=== PATIENT | male | born 1945 | race Caucasian/White ===

== ENCOUNTER 2018-09-16 07:16 | Emergency (ER) | payer MEDICARE ==
[2018-09-16] MEDS ORDERED: MULTIVITAMINS(*) 10 ML VIAL 10 ML, THIAMINE HCL(*) 200 MG/2 ML IN 100 MG, FOLIC ACID(*)... IV ONE (07:30)
--- NOTE | 2018-09-16 07:31 | ER Report ---
History and Physical Time Seen By MD: 07:20 Hx. of Stated Complaint: WEAKNESS DIZZY "NOT RIGHT IN THE HEAD" HX OF SLURRED SPEECH (LAURORA,WESLEY V DO) HPI/ROS CHIEF COMPLAINT: slurred speach, dizzy, not right HISTORY OF PRESENT ILLNESS: Pt brought in by astranged carlos son. Pt and son are from [place] and are on a camping trip to [place]. PT is an alcoholic per son and has been homeless. Step son has taken him off the streets and has been trying to help him. States that pt started 5 days ago acting strangely. PT having intermittent episodes of slurred speech, dizziness and speaking gibberish.Pt was fine two days ago and then restarted with symptoms last night. Woke up with slurred speech and dizziness.Speech improved but still feels off balance and spinning. Dizziness is not positional. Pt states he also feels sob since he arrived in [place]. Son states pt did not want to go to ed until this am. Pt states that he has hx of htn and prior tia. Pt is not on any medications due to "i cant afford any medications". Pt admits to being an alcoholic and has been cutting down to just a few shots a day. Pt is also a smoker. Pt denies ever having extremity weakness with these episodes "we hiked just yesterday". REVIEW OF SYSTEMS: Constitutional: No fever, no chills. Eyes: No discharge. ENT: No sore throat. Cardiovascular: No chest pain, no palpitations. Respiratory: No cough, + shortness of breath. Gastrointestinal: No abdominal pain, no vomiting. Genitourinary: No hematuria. Musculoskeletal: No back pain. Skin: No rashes. Neurological: No headache, + slurred speach, dizziness (LAURORA,WESLEY V DO) Allergies: Coded Allergies: No Known Allergies (Verified Allergy, Unknown, 09/16/18) Past Medical/Surgical History Pmhx: alcoholic, htn, depression, cad, tia (LAURORA,WESLEY V DO) Reviewed Nurses Notes: Yes (LAURORA,WESLEY V DO) Hx Smoking: Yes Smoking Status: Current: Every Day Smoker Hx Alcohol Use: Yes (Daily) (LAURORA,WESLEY V DO) Constitutional Vital Sign - Last 24 Hours 09/16/18 09/16/18 09/16/1819 07:16 07:25 07:30 07:46 Temp 97.7 Pulse 76 55 Resp 15 17 B/P (MAP) 207/98 (134) 207/95 151/60 (90) Pulse Ox 88 91 O2 Delivery Room Air 09/16/18 09/16/18 09/16/18 09/16/18 08:00 08:05 08:30 08:35 Pulse 53 57 Resp 17 23 B/P (MAP) 143/61 (88) 186/61 (102) Pulse Ox 90 94 09/16/18 09/16/18 09/16/18 09/16/18 10:25 10:30 11:00 11:30 Pulse 52 51 50 Resp 20 B/P (MAP) 153/65 (94) 150/68 (95) 152/66 (94) 167/67 (100) Pulse Ox 97 (MEAGHAN MASSEY MD) Physical Exam General Appearance: The patient is alert, has no immediate need for airway protection and no signs of toxicity. Eyes: Pupils equal and round no pallor or injection, EOMI ENT: no pharyngeal erythema or exudates, Mucous membranes are moist, TM are nl b/l Respiratory: There are no retractions, lungs are clear to auscultation. Cardiovascular: Regular rate and rhythm. pulses are equal and symmetrical Gastrointestinal: Abdomen is soft and non tender, no masses, bowel sounds normal, no guarding, no rigidity or rebound Neurological: Cranial nerves II-XII grossly intact, no sensory or motor loss, upper and lower strength 5/5, no dysymetria or pronator drift Skin: Warm and dry, no rashes. Musculoskeletal: Neck is supple non tender, no vertebral tenderness Extremities are nontender, nonswollen and have full range of motion. DIFFERENTIAL DIAGNOSIS: After history and physical exam differential diagnosis was considered for tia, cva, intracranial bleed, Wernicke's encephalopathy, electrolyte abnl, altitude sickness (LAURORA,WESLEY V DO) Medical Decision Making Data Points Result Diagram: 09/16/18 0723 09/16/18 0723 Laboratory Hematology Test 09/16/18 07:23 White Blood Count 5.8 k/uL (4.5-11.0) Red Blood Count 4.82 M/uL (4.00-5.60) Hemoglobin 16.1 g/dL (14.0-18.0) Hematocrit 47.5 % (42.0-52.0) Mean Corpuscular Volume 98.5 fL (80.0-96.0) H Mean Corpuscular Hemoglobin 33.4 pg (26.0-33.0) H Mean Corpuscular Hemoglobin Concent 33.9 g/dL (32.0-36.0) Red Cell Distribution Width 13.9 % (11.5-14.5) Platelet Count 273 K/uL (150-450) Mean Platelet Volume 7.7 fL (7.2-11.1) Neutrophils (%) (Auto) 69.5 % (39.4-72.5) Lymphocytes (%) (Auto) 19.0 % (17.6-49.6) Monocytes (%) (Auto) 9.7 % (4.1-12.4) Eosinophils (%) (Auto) 0.9 % (0.4-6.7) Basophils (%) (Auto) 0.9 % (0.3-1.4) Nucleated RBC Relative Count (auto) 0.1 /100WBC Neutrophils # (Auto) 4.0 K/uL (2.0-7.4) Lymphocytes # (Auto) 1.1 K/uL (1.3-3.6) L Monocytes # (Auto) 0.6 K/uL (0.3-1.0) Eosinophils # (Auto) 0.1 K/uL (0.0-0.5) Basophils # (Auto) 0.1 K/uL (0.0-0.1) Nucleated RBC Absolute Count (auto) 0.00 K/uL Chemistry Test 09/16/18 07:23 Sodium Level 139 mmol/L (137-145) Potassium Level 4.1 mmol/L (3.5-5.0) Chloride Level 104 mmol/L (98-107) Carbon Dioxide Level 23 mmol/L (22-30) Blood Urea Nitrogen 15 mg/dl (9-21) Creatinine 0.80 mg/dl (0.66-1.25) Glomerular Filtration Rate Calc > 60.0 Random Glucose 102 mg/dl (75-110) Calcium Level 9.5 mg/dl (8.4-10.2) Magnesium Level 2.2 mg/dl (1.7-2.2) Total Bilirubin 1.1 mg/dl (0.2-1.3) Aspartate Amino Transf (AST/SGOT) 43 U/L (0-35) Alanine Aminotransferase (ALT/SGPT) 31 U/L (0-56) Alkaline Phosphatase 101 U/L (0-126) Troponin I < 0.012 ng/ml Total Protein 8.7 g/dl (6.3-8.2) Albumin 4.8 g/dl (3.5-5.0) Coagulation Test 09/16/18 08:15 Prothrombin Time 13.3 seconds (12.0-14.4) Prothromb Time International Ratio 1.01 Activated Partial Thromboplast Time 27 seconds (23-35) Toxicology Test 09/16/18 07:23 Serum Alcohol < 10 mg/dl (MEAGHAN MASSEY MD) EKG/Imaging EKG Interpretation nsr @ 60 with no acute changes (WESLEY BLANCHARD DO) Imaging FACILITY: [facility] PATIENT NAME: Homer Garcia : 1945 MR: [id number] V: [id number] EXAM DATE: ORDERING PHYSICIAN: WESLEY BLANCHARD TECHNOLOGIST: Location: [facility] Patient: Homer Garcia : 1945 Visit/Account:[id number] Date of Sevice: 09/16/2018 Study: CT scan of the brain without intravenous contrast. Indication: Leg weakness and dizziness Comparison study:None Technique: Multiple axial images were obtained through the brain without the use of intravenous contrast. One of the following dose optimization techniques was utilized in the performance of this exam: Automated exposure control; adjustment of the mA and/or kV according to the patient's size; or use of an iterative reconstruction technique. Specific details can be referenced in the facility's radiology CT exam operational policy. The examination demonstrates no evidence of acute intracranial hemorrhage. There is no evidence of extra-axial collection or hydrocephalus. There is no abnormal density identified within the brain parenchyma. There is no evidence of disruption of the peripheral medrano-white junction. The bony structures are unremarkable. IMPRESSION:Unremarkable CT scan of the brain without contrast. Report Dictated By: Mitchell Dan at 09/16/2018 7:53 AM Report E-Signed By: Mitchell Dan at 09/16/2018 7:54 AM WSN:[id number] FACILITY: [facility] PATIENT NAME: Homer Garcia : 1945 MR: [id number] V: [id number] EXAM DATE: ORDERING PHYSICIAN: WESLEY BLANCHARD TECHNOLOGIST: Location: [facility] Patient: Homer Garcia : 1945 Visit/Account:[id number] Date of Sevice: 09/16/2018 MR BRAIN/BRAIN STEM W/O CON Comparisons: Head CT scan dated earlier same day Additional pertinent history: Slurred speech with dizziness TECHNIQUE: Multiplanar, multisequence brain MRI was performed without gadolinium contrast. FINDINGS: Sagittal midline structures and craniocervical junction: Negative. Midline shift: None. Ventricles: Mild enlargement of the lateral and third ventricles. Brain parenchyma: Diffusion weighted imaging: Negative. Gradient sequence: Negative. T2 weighted FLAIR images: Scattered foci of abnormal increased T2 signal w ithin the periventricular and subcortical white matter as well as within the brainstem. This is most likely related to small vessel ischemic change on a chronic basis. Extra-axial spaces: Mild cerebral atrophy. Dural venous sinuses and major arterial flow voids: Negative. Mastoid air cells and paranasal sinuses: Negative. Surrounding soft tissues and orbits: Negative. Impression: 1. Age related changes as described above. 2. No evidence of acute intracranial pathology. Report Dictated By: Pravin Dumont MD at 09/16/2018 10:45 AM Report E-Signed By: Pravin Dumont MD at 09/16/2018 10:49 AM WSN:[id number] FACILITY: [facility] PATIENT NAME: Homer Garcia : 1945 MR: [id number] V: [id number] EXAM DATE: ORDERING PHYSICIAN: WESLEY BLANCHARD TECHNOLOGIST: Location: [facility] Patient: Homer Garcia : 1945 Visit/Account:[id number] Date of Sevice: 09/16/2018 MRA HEAD W/O CONTRAST COMPARISON: None Additional pertinent history: Slurred speech with dizziness Technique: 3-D [id number] imaging was performed of the [place] of [place] with multiple reformatted images obtained off the axial source data. FINDINGS: Vascular variants: None Visualized vertebrobasilar system: Patient is right vertebral dominant. The vertebral arteries have a normal appearance. 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 A1 and M1 segments: Negative A2 and M2 segments: Negative Anterior communicating artery: Negative P1 segments/superior cerebellar arteries: Negative IMPRESSION: 1. 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 2. Remaining portions of the exam are unremarkable. Report Dictated By: Pravin Dumont MD at 09/16/2018 10:49 AM Report E-Signed By: Pravin Dumont MD at 09/16/2018 10:52 AM WSN:[id number] (MEAGHAN MASSEY MD) ED Course/Re-evaluation ED Course Check labs, ct and possibly MRI. Will start banana bag with MVI, mag and thiamine 09/16/2018 8:19:42 am Signed out to Dr. Massey (WESLEY BLANCHARD DO) ED Course 09/16/2018 11:56:56 am imaging showed no evidence of acute infarction or stroke including both the noncontrast CT of the head and CT brain MRI. There was an incidental finding of a 2 mm aneurysm at the [place] point of the left internal carotid artery without evidence of bleeding. I did speak with Antelmo Narayan history and physical exam pertinent lab data and imaging studies were reviewed. did not feel that the patient's symptoms related to this aneurysm, he also feels that this is something that can be followed up when he returns to [place] at [facility]. Thought process at this time his symptoms could be alcohol related in the sense of wernike's encephalopathy or Kortakoff syndrome. We will place the patient on thiamine. We will discharge the patient with instructions to follow-up upon return to [place] with neurosurgery at [facility]. Patient had no questions or concerns at time of disposition. Patient sent with Rx for thiamine oral 100mg daily for 30 days Decision to Disposition Date: Sep 16, 2018 Decision to Disposition Time: 11:59 Turned Over accepted care at 0836 (MEAGHAN MASSEY MD) Depart Departure Latest Vital Signs Vital Signs Date Time Temp Pulse Resp B/P (MAP) Pulse Ox O2 Delivery O2 Flow Rate FiO2 09/16/18 11:30 50 20 167/67 (100) 97 09/16/18 07:25 97.7 Room Air (MEAGHAN MASSEY MD) Impression: Primary Impression: Dizziness Condition: Improved Disposition: HOME OR SELF-CARE Patient Instructions: Dizziness (ED) Additional Instructions: Your imaging studies today did not show any evidence that you've had a stroke. You do have a 2 mm aneurysm which is a dilation of the blood vessel to the left internal carotid artery at the branch point. This was felt to be an incidental finding and not the cause of your symptoms today. It is recommended however that you follow up with neurosurgery when he returned home to [place], [place]. He is also recommended that you decrease her alcohol consumption and if possible remain abstinent from alcohol use. You should also follow up with her primary care provider upon returning to [place] WESLEY BLANCHARD DO Sep 16, 2018 07:31 MEAGHAN MASSEY MD Sep 16, 2018 08:52
--- NOTE | 2018-09-16 07:41 | EKG ---
FACILITY: [facility] PATIENT NAME: MARTA COON : [id number] MR: [id number] V: [id number] EXAM DATE: ORDERING PHYSICIAN: WESLEY BLANCHARD TECHNOLOGIST: MARTINA Test Reason : DIZZY, CHEST PRESS. Blood Pressure : / mmHG Vent. Rate : 061 BPM Atrial Rate : 061 BPM P-R Int : 134 ms QRS Dur : 084 ms QT Int : 418 ms P-R-T Axes : 040 058 066 degrees QTc Int : 420 ms Normal sinus rhythm Normal ECG No previous ECGs available Confirmed by SAMY RING ([id number]) on 09/16/2018 9:59:53 AM Referred By: SANTO Confirmed By:SAMY RING
[2018-09-16 07:47] LABS: PLATELET COUNT, AUTOMATED 273 K/uL (150-450)
--- NOTE | 2018-09-16 07:54 | RADIOLOGY IMAGING REPORT ---
FACILITY: [facility] PATIENT NAME: Homer Garcia : 1945 MR: [id number] V: [id number] EXAM DATE: ORDERING PHYSICIAN: WESLEY BLANCHARD TECHNOLOGIST: Location: [facility] Patient: Homer Garcia : 1945 Visit/Account:[id number] Date of Sevice: 09/16/2018 Study: Frontal and lateral views of the chest Indication: Weakness in legs, dizziness Comparison study: None Findings: PA and lateral views of the chest demonstrate no evidence of acute infiltrate. There is no evidence of pleural effusion. There is no evidence of pneumothorax. The mediastinal, cardiac, and diaphragmatic contours are unremarkable. The visualized bony structures are unremarkable. IMPRESSION: Unremarkable chest. Report Dictated By: Mitchell Dan at 09/16/2018 7:45 AM Report E-Signed By: Mitchell Dan at 09/16/2018 7:46 AM WSN:[id number]
--- NOTE | 2018-09-16 08:02 | RADIOLOGY IMAGING REPORT ---
FACILITY: [facility] PATIENT NAME: Homer Garcia : 1945 MR: [id number] V: [id number] EXAM DATE: ORDERING PHYSICIAN: WESLEY BLANCHARD TECHNOLOGIST: Location: [facility] Patient: Homer Garcia : 1945 Visit/Account:[id number] Date of Sevice: 09/16/2018 Study: CT scan of the brain without intravenous contrast. Indication: Leg weakness and dizziness Comparison study:None Technique: Multiple axial images were obtained through the brain without the use of intravenous contr ast. One of the following dose optimization techniques was utilized in the performance of this exam: Autom ated exposure control; adjustment of the mA and/or kV according to the patient's size; or use of an i terative reconstruction technique. Specific details can be referenced in the facility's radiology C T exam operational policy. The examination demonstrates no evidence of acute intracranial hemorrhage. There is no evidence of ex tra-axial collection or hydrocephalus. There is no abnormal density identified within the brain parenchyma. There is no evidence of disruption of the peripheral medrano-white junction. The bony structures are unremarkable. IMPRESSION:Unremarkable CT scan of the brain without contrast. Report Dictated By: Mitchell Dan at 09/16/2018 7:53 AM Report E-Signed By: Mitchell Dan at 09/16/2018 7:54 AM WSN:[id number]
[2018-09-16 08:45] LABS: INR 1.01
[2018-09-16] MEDS ORDERED: NS(*) 0.9% 50 ML BAG 50 ML ONE (08:56)
[2018-09-16] MEDS ORDERED: GADOBENATE 529MG/1ML 15ML VIAL IVP ONE (08:56)
--- NOTE | 2018-09-16 10:58 | RADIOLOGY IMAGING REPORT ---
FACILITY: [facility] PATIENT NAME: Homer Garcia : 1945 MR: [id number] V: [id number] EXAM DATE: ORDERING PHYSICIAN: WESLEY BLANCHARD TECHNOLOGIST: Location: [facility] Patient: Homer Garcia : 1945 Visit/Account:[id number] Date of Sevice: 09/16/2018 MR BRAIN/BRAIN STEM W/O CON Comparisons: Head CT scan dated earlier same day Additional pertinent history: Slurred speech with dizziness TECHNIQUE: Multiplanar, multisequence brain MRI was performed without gadolinium contrast. FINDINGS: Sagittal midline structures and craniocervical junction: Negative. Midline shift: None. Ventricles: Mild enlargement of the lateral and third ventricles. Brain parenchyma: Diffusion weighted imaging: Negative. Gradient sequence: Negative. T2 weighted FLAIR images: Scattered foci of abnormal increased T2 signal within the periventricular and subcortical white matter as well as within the brainstem. This is most likely related to small vessel ischemic change on a chronic basis. Extra-axial spaces: Mild cerebral atrophy. Dural venous sinuses and major arterial flow voids: Negative. Mastoid air cells and paranasal sinuses: Negative. Surrounding soft tissues and orbits: Negative. Impression: 1. Age related changes as described above. 2. No evidence of acute intracranial pathology. Report Dictated By: Pravin Dumont MD at 09/16/2018 10:45 AM Report E-Signed By: Pravin Dumont MD at 09/16/2018 10:49 AM WSN:[id number]
--- NOTE | 2018-09-16 11:00 | RADIOLOGY IMAGING REPORT ---
FACILITY: [facility] PATIENT NAME: Homer Garcia : 1945 MR: [id number] V: [id number] EXAM DATE: ORDERING PHYSICIAN: WESLEY BLANCHARD TECHNOLOGIST: Location: [facility] Patient: Homer Garcia : 1945 Visit/Account:[id number] Date of Sevice: 09/16/2018 MRA HEAD W/O CONTRAST COMPARISON: None Additional pertinent history: Slurred speech with dizziness Technique: 3-D [id number] imaging was performed of the [place] of [place] with multiple reformatted images obtained off the axial source data. FINDINGS: Vascular variants: None Visualized vertebrobasilar system: Patient is right vertebral dominant. The vertebral arteries have a normal appearance. 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 A1 and M1 segments: Negative A2 and M2 segments: Negative Anterior communicating artery: Negative P1 segments/superior cerebellar arteries: Negative IMPRESSION: 1. 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 2. Remaining portions of the exam are unremarkable. Report Dictated By: Pravin Dumont MD at 09/16/2018 10:49 AM Report E-Signed By: Pravin Dumont MD at 09/16/2018 10:52 AM WSN:[id number]
--- NOTE | 2018-09-16 11:04 | RADIOLOGY IMAGING REPORT ---
FACILITY: [facility] PATIENT NAME: Homer Garcia : 1945 MR: [id number] V: [id number] EXAM DATE: ORDERING PHYSICIAN: WESLEY BLANCHARD TECHNOLOGIST: Location: [facility] Patient: Homer Garcia : 1945 Visit/Account:[id number] Date of Sevice: 09/16/2018 MRA NECK W W/O CONTRAST COMPARISON: None ADDITIONAL PERTINENT HISTORY: Slurred speech and dizziness Technique: 3-D [id number] imaging and contrasted enhanced MRA was performed of the neck arterial vasculature with multiple reformatted images obtained off the axial source data. Study was performed before and after the IV administration of gadolinium. Degrees of stenosis of the cervical internal carotid arteries are based on NASCET criteria. CONTRAST: 15 ml of MultiHance FINDINGS: Vascular variants: None Great vessel origins/aortic arch: Negative Vertebral arteries: Patient is right vertebral dominant. The left vertebral artery has a normal appe arance. The right vertebral artery has a normal appearance. Common carotid arteries: Negative Common carotid artery bifurcations: Negative Cervical internal carotid arteries: Mild atherosclerotic irregularity involving the proximal cervical internal carotid arteries without significant stenosis. The more distal aspects of both cervical in ternal carotid arteries are unremarkable. Visualized intracranial arterial anatomy: Negative Surrounding soft tissues: Negative IMPRESSION: 1. Mild atherosclerotic irregularity involving the proximal cervical internal carotid arteries. 2. No other acute abnormality noted. 3. No significant stenosis noted involving the arterial vasculature of the neck. Report Dictated By: Pravin Dumont MD at 09/16/2018 10:52 AM Report E-Signed By: Pravin Dumont MD at 09/16/2018 10:55 AM WSN:[id number]
[2018-09-16 11:30] VITALS: BP 167/67
== END 2018-09-16 12:21 | disposition home or self-care (01) ==
LOC: ER 07:38
DX: R42 Dizziness and giddiness (principal)
CPT/HCPCS: 70450; 70544; 70549; 70551; 71046; 83735; 84484; 85025; 85610; 85730; 93005; 96365; 96366; 99284; A9577; G0480; J3411; J3475; J7030; J7050; 80320; 82040; 82247; 82310; 82374; 82435; 82565; 82947; 84075; 84132; 84155; 84295; 84450; 84460; 84520

== ENCOUNTER 2018-09-22 20:18 | Emergency (ER) | payer MEDICARE ==
--- NOTE | 2018-09-22 20:21 | ER Report ---
History and Physical Time Seen By MD: 20:17 (JESSICA AN MD) Time Seen By MD: 07:00 (KEYSHA ARZATE DO) HPI/ROS CHIEF COMPLAINT: not feeling safe. HISTORY OF PRESENT ILLNESS: This is a 73 year old male. He is homeless. He has a history of alcoholism, but states he has not had much to drink, maybe a shot or two of beer earlier today. Denies other substance abuse. He says his memory has been getting bad. Seems to come and go, and he is worried about his safety. He feels like he may need to be admitted into a care home situation. He has normal bowels. Normal urination without dysuria. Has no chest pain or palpitations. He has no shortness of breath or cough. He has no fevers or chi lls. Denies headache, but has had some dizziness at times. He does have some suicidal thoughts and recently has had some thoughts of trying to hang himself, but no definitive plan, and these thoughts make him worried as well. No current medications at this time based on social situation. REVIEW OF SYSTEMS: As above. (JESSICA AN MD) HPI/ROS Please see Dr. An's note (KEYSHA ARZATE DO) Allergies: Coded Allergies: No Known Allergies (Verified Allergy, Unknown, 09/16/18) Reviewed Nurses Notes: Yes (JESSICA AN MD) Hx Smoking: Yes Smoking Status: Current: Every Day Smoker Hx Substance Use Disorder: No Hx Alcohol Use: Yes (Daily) (JESSICA AN MD) Constitutional Vital Sign - Last 24 Hours 09/22/18 09/22/18 09/22/18 09/22/18 20:26 20:30 20:33 20:48 Temp 98.2 Pulse 94 96 86 Resp 24 B/P (MAP) 189/81 149/90 (109) Pulse Ox 93 91 91 O2 Delivery Room Air 09/22/18 09/22/18 09/22/18 09/22/18 21:00 21:03 21:18 21:30 Pulse 78 79 B/P (MAP) 137/54 (81) 131/74 (93) Pulse Ox 89 90 09/22/18 09/22/18 09/22/18 09/22/18 21:33 21:48 22:03 22:08 Pulse 77 73 72 74 B/P (MAP) 132/66 (88) Pulse Ox 92 91 91 90 09/22/18 09/22/18 09/22/18 09/22/18 22:23 22:30 22:38 22:43 Pulse 72 68 67 B/P (MAP) 135/60 (85) Pulse Ox 91 87 87 09/22/18 09/22/18 09/22/18 09/22/18 22:58 23:00 23:13 23:28 Pulse 67 66 65 B/P (MAP) 136/57 (83) Pulse Ox 87 88 88 09/22/18 09/22/18 09/22/18 09/23/18 23:30 23:43 23:58 00:00 Pulse 65 68 B/P (MAP) 129/62 (84) 144/55 (84) Pulse Ox 88 90 09/23/18 09/23/18 09/23/18 09/23/18 00:13 00:28 00:30 00:35 Pulse 63 60 62 B/P (MAP) 123/55 (77) Pulse Ox 88 89 89 09/23/18 09/23/18 09/23/18 09/23/18 00:50 01:00 01:05 01:20 Pulse 59 61 60 B/P (MAP) 121/53 (75) Pulse Ox 88 89 89 09/23/18 09/23/18 09/23/18 09/23/18 01:30 01:35 01:50 02:00 Pulse 57 58 B/P (MAP) 118/56 (76) 113/56 (75) Pulse Ox 89 88 09/23/18 09/23/18 09/23/18 09/23/18 02:05 02:12 02:20 02:30 Pulse 63 63 B/P (MAP) 127/57 (80) Pulse Ox 87 O2 Flow Rate 2.0 09/23/18 09/23/18 09/23/18 09/23/18 02:35 02:50 03:00 03:05 Pulse 56 58 55 B/P (MAP) 110/45 (66) Pulse Ox 97 97 95 09/23/18 09/23/18 09/23/18 09/23/18 03:20 03:30 03:35 03:40 Pulse 55 60 54 B/P (MAP) 107/43 (64) Pulse Ox 95 95 95 09/23/18 09/23/18 09/23/18 09/23/18 03:55 04:00 04:10 04:25 Pulse 57 53 57 B/P (MAP) 123/59 (80) Pulse Ox 95 09/23/18 09/23/18 09/23/18 09/23/18 04:30 04:40 04:55 05:00 Pulse 58 54 B/P (MAP) 126/58 (80) 125/65 (85) Pulse Ox 98 96 09/23/18 09/23/18 09/23/18 09/23/18 05:10 05:25 05:30 05:35 Pulse 54 54 54 B/P (MAP) 139/63 (88) Pulse Ox 97 96 95 09/23/18 09/23/18 09/23/18 09/23/18 05:50 06:00 06:05 06:20 Pulse 54 53 56 B/P (MAP) 131/57 (81) Pulse Ox 95 96 96 Intake and Output 09/22/18 09/22/18 09/23/18 15:04 23:04 07:04 Intake Total 1015.2 ml Balance 1015.2 ml (ARZATE,KEYSHA S DO) Physical Exam General Appearance: The patient is alert. Disheveled appearance. No acute distress. Eyes: Pupils are equal, round. Reactive to light. No pallor, injection or icterus. Extraocular movements are intact. ENT: Mucous membranes are moist. Normal oral mucosa. Posterior oropharynx is normal. Neck: Supple and non tender. Respiratory: Lungs are clear to auscultation. Cardiovascular: Regular rate and rhythm. No murmurs, gallops or rubs. Normal capillary refill. No edema. Gastrointestinal: Abdomen is soft and non tender. Nondistended. Normal active bowel sounds. Neurological: Alert and oriented x3. Cranial nerves II through XII show no acute deficits on my exam. No focal neurologic deficits in the extremities. Skin: Warm and dry. No rashes. Musculoskeletal: Extremities are nontender. Full range of motion. No tenderness in palpation of the cervical, thoracic and lumbar spine. DIFFERENTIAL DIAGNOSIS: After history and physical exam, differential diagnosis was considered for patient with concern about memory and safety, also with some suicidal ideation, but no definitive plan. (JESSICA AN MD) Physical Exam Please see Dr. An's note (KEYSHA ARZATE DO) Medical Decision Making Data Points Result Diagram: 09/22/18214409/22/182144 Laboratory Hematology Test 09/22/18 21:45 White Blood Count 7.6 k/uL (4.5-11.0) Red Blood Count 4.38 M/uL (4.00-5.60) Hemoglobin 14.6 g/dL (14.0-18.0) Hematocrit 42.6 % (42.0-52.0) Mean Corpuscular Volume 97.3 fL (80.0-96.0) H Mean Corpuscular Hemoglobin 33.4 pg (26.0-33.0) H Mean Corpuscular Hemoglobin Concent 34.4 g/dL (32.0-36.0) Red Cell Distribution Width 13.6 % (11.5-14.5) Platelet Count 229 K/uL (150-450) Mean Platelet Volume 7.4 fL (7.2-11.1) Neutrophils (%) (Auto) 77.3 % (39.4-72.5) H Lymphocytes (%) (Auto) 13.4 % (17.6-49.6) L Monocytes (%) (Auto) 8.5 % (4.1-12.4) Eosinophils (%) (Auto) 0.3 % (0.4-6.7) L Basophils (%) (Auto) 0.5 % (0.3-1.4) Nucleated RBC Relative Count (auto) 0.0 /100WBC Neutrophils # (Auto) 5.9 K/uL (2.0-7.4) Lymphocytes # (Auto) 1.0 K/uL (1.3-3.6) L Monocytes # (Auto) 0.6 K/uL (0.3-1.0) Eosinophils # (Auto) 0.0 K/uL (0.0-0.5) Basophils # (Auto) 0.0 K/uL (0.0-0.1) Nucleated RBC Absolute Count (auto) 0.00 K/uL Chemistry Test 09/22/18 21:45 Sodium Level 136 mmol/L (137-145) Potassium Level 4.3 mmol/L (3.5-5.0) Chloride Level 103 mmol/L (98-107) Carbon Dioxide Level 23 mmol/L (22-30) Blood Urea Nitrogen 16 mg/dl (9-21) Creatinine 0.90 mg/dl (0.66-1.25) Glomerular Filtration Rate Calc > 60.0 Random Glucose 91 mg/dl (75-110) Calcium Level 9.3 mg/dl (8.4-10.2) Magnesium Level 2.1 mg/dl (1.7-2.2) Total Bilirubin 0.6 mg/dl (0.2-1.3) Aspartate Amino Transf (AST/SGOT) 34 U/L (0-35) Alanine Aminotransferase (ALT/SGPT) 30 U/L (0-56) Alkaline Phosphatase 80 U/L (0-126) Ammonia 9 UMOL/L (9-33) Troponin I < 0.012 ng/ml Total Protein 7.1 g/dl (6.3-8.2) Albumin 4.2 g/dl (3.5-5.0) Thyroid Stimulating Hormone (TSH) 2.51 uIU/ml (0.46-4.68) Toxicology Test 09/22/18 20:18 09/22/18 21:45 Urine Opiates Screen Negative Urine Barbiturates Screen Negative Ur Tricyclic Antidepressants Screen Negative Urine Phencyclidine Screen Negative Urine Amphetamines Screen Negative Urine Benzodiazepines Screen Negative Urine Cocaine Screen Negative Urine Cannabinoids Screen Negative Salicylates Level < 10 mg/L Salicylate Last Dose Date unk Acetaminophen Level < 10 ug/ml Serum Alcohol < 10 mg/dl Urinalysis Test 09/22/18 20:18 Urine Color Straw Urine Clarity Clear Urine pH 7.0 pH (4.8-9.5) Urine Specific [place] 1.004 Urine Protein Negative mg/dL (NEGATIVE) Urine Glucose (UA) Negative mg/dL (NEGATIVE) Urine Ketones Negative mg/dL (NEGATIVE) Urine Blood Negative (NEGATIVE) Urine Nitrite Negative (NEGATIVE) Urine Bilirubin Negative (NEGATIVE) Urine Urobilinogen Negative mg/dL (0.2-1.9) Urine Leukocyte Esterase Negative (NEGATIVE) Urine RBC 1 /HPF (0-2/HPF) Urine WBC <1 /HPF (0-5/HPF) Urine Squamous Epithelial Cells None /LPF (</=FEW) Urine Bacteria Negative /HPF (NONE-FEW) Urine Mucus None /HPF (NONE-FEW) (KEYSHA ARZATE DO) EKG/Imaging Imaging CT Head without contrast Indication: Memory problems. Comparison: MRI and head CT 09/16/2018. Technique: Axial CT images were obtained through the brain from the skull base to the vertex without administration of IV contrast. One of the following dose optimization techniques was utilized in the performance of this exam: Automated exposure control; adjustment of the mA and/or kV according to the patient's size; or use of an iterative reconstruction technique. Specific details can be referenced in the facility's radiology CT exam operational policy. Findings: No evidence of mass, mass effect, or midline shift. No acute intracranial hemorrhage or acute territorial infarction. Prominent perivascular space versus remote lacunar infarct in the left basal ganglia. Skull is nonacute. Globes and orbits are normal. The visualized paranasal sinuses and mastoid air spaces are clear. IMPRESSION: No acute intracranial abnormality or significant change. Report Dictated By: Guillermo Nuno MD at 09/22/2018 10:16 PM (JESSICA AN MD) ED Course/Re-evaluation Clinical Indication for ER IV: Hydration, IV Access ED Course Patient given a [place] bag for fluids. Labs obtained, without major changes. Discussed with Dr. Sofia for admission. His step-son is here in the ER tonight as well, needing to be admitted to behavioral health as well. Based on patient mix and need to admit the other patient, it was felt it would be better to keep him here in the ER tonight. We are going to keep the patient here in the ER tonight and have psych and social evaluation later in the morning. (JESSICA AN MD) ED Course I assumed patient care from Dr. An at shift change at 7:00. Denied suicidal or homicidal ideations. Patient's family will come by and pick the patient up. Patient was stable at time of discharge. Return precautions were provided. Decision to Disposition Date: Sep 23, 2018 Decision to Disposition Time: 10:18 (KEYSHA ARZATE DO) Depart Departure Latest Vital Signs Vital Signs Date Time Temp Pulse Resp B/P (MAP) Pulse Ox O2 Delivery O2 Flow Rate FiO2 09/23/18 06:20 56 96 09/23/18 06:00 131/57 (81) 09/23/18 02:12 2.0 09/22/18 20:26 98.2 24 Room Air (KEYSHA ARZATE DO) Impression: Primary Impression: Depression Condition: Improved Disposition: HOME OR SELF-CARE Patient Instructions: Depression (DC) Additional Instructions: Please follow up closely with her primary care provider in the next 3-5 days for repeat evaluation. Please return promptly if you develop thoughts of self-harm, harming other people. JESSICA AN MD Sep 22, 2018 20:21 KEYSHA ARZATE DO Sep 23, 2018 08:07
[2018-09-22] MEDS ORDERED: THIAMINE HCL(*) 200 MG/2 ML IN 100 MG, FOLIC ACID(*) 50 MG/10 ML INJ 1 MG, MULTIVITAMIN... IV ONE (21:22)
--- NOTE | 2018-09-22 21:56 | EKG ---
FACILITY: [facility] PATIENT NAME: MARTA COON : [id number] MR: [id number] V: [id number] EXAM DATE: ORDERING PHYSICIAN: JESSICA PRATT TECHNOLOGIST: BRYN Lemus Reason : dizziness, memory problems Blood Pressure : / mmHG Vent. Rate : 079 BPM Atrial Rate : 079 BPM P-R Int : 126 ms QRS Dur : 082 ms QT Int : 388 ms P-R-T Axes : 066 058 069 degrees QTc Int : 444 ms Sinus rhythm Possible left atrial enlargement No acute appearing findings Confirmed by MOLINA HAIR ([id number] on 09/23/2018 5:38:14 AM Referred By: Confirmed By:MOLINA HAIR
[2018-09-22 22:01] LABS: PLATELET COUNT, AUTOMATED 229 K/uL (150-450)
--- NOTE | 2018-09-22 22:33 | RADIOLOGY IMAGING REPORT ---
FACILITY: [facility] PATIENT NAME: Homer Garcia : 1945 MR: [id number] V: [id number] EXAM DATE: ORDERING PHYSICIAN: JESSICA PRATT TECHNOLOGIST: Location: [facility] [place] Patient: Homer Garcia : 1945 Visit/Account:[id number] Date of Sevice: 09/22/2018 CT Head without contrast Indication: Memory problems. Comparison: MRI and head CT 09/16/2018. Technique: Axial CT images were obtained through the brain from the skull base to the vertex without administration of IV contrast. One of the following dose optimization techniques was utilized in th performance of this exam: Automated exposure control; adjustment of the mA and/or kV according to t he patient's size; or use of an iterative reconstruction technique. Specific details can be referen donna in the facility's radiology CT exam operational policy. Findings: No evidence of mass, mass effect, or midline shift. No acute intracranial hemorrhage or acute territorial infarction. Prominent perivascular space versus remote lacunar infarct in the left basal ganglia. Skull is nonacute. Globes and orbits are normal. The visualized paranasal sinuses and mastoid air spaces are clear. IMPRESSION: No acute intracranial abnormality or significant change. Report Dictated By: Guillermo Nuno MD at 09/22/2018 10:16 PM Report E-Signed By: Guillermo Nuno MD at 09/22/2018 10:25 PM [id number]
[2018-09-23 06:00] VITALS: BP 131/57
== END 2018-09-23 11:00 | disposition home or self-care (01) ==
LOC: ER 20:33
DX: F32.9 Major depressive disorder, single episode, unspecified (principal)
CPT/HCPCS: 70450; 80305; 81001; 82140; 82375; 83735; 84443; 84484; 85025; 93005; 96365; 96366; 99284; G0480; J3411; J3475; J7030; 80320; 80329; 82040; 82247; 82310; 82374; 82435; 82565; 82947; 84075; 84132; 84155; 84295; 84450; 84460; 84520